=== PATIENT | female | born 1950 | race Caucasian/White ===

== ENCOUNTER 2019-12-04 10:54 | Day surgery (SDC) | payer OTHER ==
[2019-12-04 12:21] VITALS: BMI 18.2
[2019-12-04 14:16] VITALS: BP 130/74; PULSE 60
[2019-12-04 14:28] VITALS: TEMP 95
--- NOTE | 2019-12-07 17:00 | PATH ---
Surgical Pathology Report Patient Name: MICHAEL MORRIS [facility]. Rec. #: [id number] /Age/Gender: 1950 (Age: 68) / F Account: [id number] Location: [facility]-ENDOSCOPY Taken: 12/04/2019 Received: 12/04/2019 Reported: 12/07/2019 Physicians: Rhett Coulter M.D. Specimen(s) Received A: DESCENDING COLON POLYP B: SIGMOID COLON POLYP C: RECTAL POLYP Clinical History Colon cancer screening Postoperative diagnosis: Polyps, diverticulosis, hemorrhoids Final Diagnosis A. DESCENDING COLON, POLYP, POLYPECTOMY: TUBULAR ADENOMA. B. SIGMOID COLON, POLYP, POLYPECTOMY: TUBULOVILLOUS ADENOMA. NO HIGH GRADE DYSPLASIA IDENTIFIED. C. RECTAL POLYP, POLYPECTOMY: TUBULAR ADENOMA. NO HIGH GRADE DYSPLASIA IDENTIFIED. Electronically Signed Yaima De Leon M.D. Gross Description A. Received in formalin, labeled "descending colon polyp" is a ball, polypoid portion of soft tissue measuring 0.5 cm. in greatest dimension. The specimen is submitted in toto in one cassette. B. Received in formalin, labeled "sigmoid polyp" is a ball, polypoid portion of soft tissue measuring 1.1 cm. in greatest dimension. The specimen is submitted in toto in one cassette. C. Received in formalin labeled "rectal polyp," is a 1.1 x 0.8 x 0.5 cm ball, polypoid portion of soft tissue. The specimen is bisected and entirely submitted in one cassette. /12/04/2019 saudi12/04/2019
== END 2019-12-04 14:24 | disposition home or self-care (01) ==
LOC: JASU-ENDO 10:54
PROVIDERS: ATTEND Internal Medicine Gastroenterology
PROC: 0DBN8ZX Excision of Sigmoid Colon, Via Natural or Artificial Opening Endoscopic, Diagnostic (ICD-10-PCS; 2019-12-04)
PROC: 0DBM8ZX Excision of Descending Colon, Via Natural or Artificial Opening Endoscopic, Diagnostic (ICD-10-PCS; principal; 2019-12-04 10:30)
DX: K92.1 Melena (principal); K62.1 Rectal polyp; K57.30 Diverticulosis of large intestine without perforation or abscess without bleeding; K64.8 Other hemorrhoids; D12.4 Benign neoplasm of descending colon; D12.5 Benign neoplasm of sigmoid colon
CPT/HCPCS: 88305-TC